=== PATIENT | male | born 1965 | race Caucasian/White ===

== ENCOUNTER 2018-08-04 19:45 | Emergency (ER) | payer OTHER ==
[~2018-08-04] VITALS: Ht 180.3 cm; Wt 120.2 kg
[2018-08-04] MEDS ORDERED: AVAPRO75 MG (20:12)
== END 2018-08-04 23:32 | disposition home or self-care (01) ==
LOC: ER 19:45
DX: I16.0 Hypertensive urgency (principal); I10 Essential (primary) hypertension